=== PATIENT | female | born 1940 | race Caucasian/White ===

== ENCOUNTER 2018-10-16 18:38 | Emergency (ER) | payer MEDICARE, OTHER ==
[2018-10-16 19:22] VITALS: BP 130/75
--- NOTE | 2018-10-16 20:26 | EDM.PDOC ---
ED HPI GENERAL MEDICAL PROBLEM - General Chief Complaint: Lower Extremity Injury/Pain Stated Complaint: INJURED LEFT KNEE/BACK PAIN Time Seen by Provider: 10/16/18 20:08 Source of Information: Reports: Patient, RN Notes Reviewed History Limitations: Reports: No Limitations - History of Present Illness INITIAL COMMENTS - FREE TEXT/NARRATIVE: The patient states that she slipped on ice and fell onto her left knee, before falling all the way forward, around 17:15 to 17:30 this evening. She presents with left knee pain, but is primarily concerned because she has bilateral total knee arthroplasties, and wants to make sure that her left knee arthroplasty was not injured. She also reports mild low back pain, but she is not concerned that anything is broken. She is otherwise uninjured. The patient has not taken any home medicines to treat her symptoms. The patient is able to ambulate on both of her lower extremities without pain or limping. The patient's PCP is Stephany Stacy. Left Knee Pain Score (Numeric/FACES): 1 - Related Data Allergies Allergy/AdvReac Type Severity Reaction Status Date / Time ciprofloxacin [From Cipro] Allergy Swelling Verified 01/21/15 21:11 ciprofloxacin HCl Allergy Swelling Verified 01/21/15 21:11 [From Cipro] Sulfa (Sulfonamide Allergy Other Verified 01/21/15 21:11 Antibiotics) EES Allergy Rash Uncoded 01/21/15 21:11 Home Meds: Home Meds Aspirin [Halfprin] 81 mg PO DAILY 01/21/15 [History] Losartan [Cozaar] 100 mg PO DAILY 08/27/17 [History] Carvedilol [Coreg] 25 mg PO BID 10/16/18 [History] Hydrochlorothiazide [Microzide] 12.5 mg PO DAILY 10/16/18 [History] Past Medical History Cardiovascular History: Reports: Hypertension Musculoskeletal History: Reports: Back Pain, Chronic (DDD) - Past Surgical History HEENT Surgical History: Reports: Naso-Sinus Surgery (rhinoplasty) GI Surgical History: Reports: Other (See Below) (Exploratory laparotomy for infertility) Musculoskeletal Surgical History: Reports: Hip Replacement (right), Knee Replacement (bilateral) Social & Family History - Tobacco Use Smoking Status *Q: Never Smoker - Caffeine Use Caffeine Use: Reports: Coffee, Tea - Alcohol Use Alcohol Use History: Yes Alcohol Use Frequency: Socially ("Niurka's in my coffee veronica morning") - Recreational Drug Use Recreational Drug Use: No - Living Situation & Occupation Living situation: Reports: , with Spouse Occupation: Retired Review of Systems - Review of Systems Review Of Systems: ROS reveals no pertinent complaints other than HPI. ED EXAM, GENERAL - Physical Exam Exam: See Below Exam Limited By: No Limitations General Appearance: Alert, WD/WN, No Apparent Distress Extremities: Other (With the patient standing, there is a small abrasion, measuring approximately 1 cm diameter, located inferior to the patient's left patella, with a surrounding area of mild swelling and ecchymosis, measuring approximately 3 cm diameter. This area is tender, however, the patella itself, is not. The knee is stable. Neurovascular status of the left lower extremity is intact.) Course - Vital Signs Last Recorded V/S: Last Vital Signs Temp 36.7 C 10/16/18 19:20 Pulse 60 10/16/18 19:20 Resp 20 10/16/18 19:20 BP 130/75 10/16/18 19:20 Pulse Ox 96 10/16/18 19:20 - Re-Assessments/Exams Free Text/Narrative Re-Assessment/Exam: 10/16/18 20:21 The patient has a small abrasion and subtle ecchymosis to her anterior left knee , but the [place] patella is nontender to palpation. There is no clinical suggestion of arthroplastic instability. X-rays of the knee were offered, but declined, after I explained that while it is possible that she can break the bone that surrounds her arthroplasty, the arthroplasty itself is made of metal, and would not be injured in such a fall. Departure - Departure Time of Disposition: 20:24 Disposition: Home, Self-Care 01 Condition: Good Clinical Impression: Fall from slipping on ice, Contusion of left knee - Discharge Information *PRESCRIPTION DRUG MONITORING PROGRAM REVIEWED*: Not Applicable *COPY OF PRESCRIPTION DRUG MONITORING REPORT IN PATIENT KYMBERLY: Not Applicable Instructions: Contusion, [id number] Referrals: Stephany Stacy PA-C [Primary Care Provider] - Forms: ED Department Discharge Additional Instructions: You were seen in the emergency room after slipping on ice and falling onto her left knee. On examination, you have a small abrasion and contusion (bruise) to the front of your left knee, but the artificial knee itself appears to be intact and stable. X-rays of your left knee were offered, but declined. Take [id number] Tylenol or ibuprofen as needed for discomfort. If any other problems, please do not hesitate to return to the ER.
== END 2018-10-16 21:10 | disposition home or self-care (01) ==
LOC: JD.ED 18:38
DX: S80.02XA Contusion of left knee, initial encounter (principal); W00.0XXA Fall on same level due to ice and snow, initial encounter; I10 Essential (primary) hypertension; Z79.82 Long term (current) use of aspirin; Z79.899 Other long term (current) drug therapy; Z88.1 Allergy status to other antibiotic agents; Z88.2 Allergy status to sulfonamides
CPT/HCPCS: 99282; 99283

== ENCOUNTER 2019-04-07 16:32 | Emergency (ER) | payer MEDICARE, OTHER ==
[2019-04-07 16:49] VITALS: BP 167/73
[2019-04-07] MEDS ORDERED: Sodium Chloride 0.9% 10 ML Syringe FLUSH PRN (17:02)
--- NOTE | 2019-04-07 17:44 | EDM.PDOC ---
ED HPI GENERAL MEDICAL PROBLEM - General Chief Complaint: Chest Pain Stated Complaint: ABNORMAL EKG, SENT BY [facility] Time Seen by Provider: 04/07/19 16:42 Source of Information: Reports: Patient, RN Notes Reviewed - History of Present Illness INITIAL COMMENTS - FREE TEXT/NARRATIVE: 78-year-old lady has been referred here from [facility] for evaluation of dyspnea with exertion worsening over the past month or so, fatigue and chest heaviness. She was worried that she might be getting anemic and therefore presented to the clinic to have her blood checked. EKG was done which showed T- wave inversion in multiple leads which was a change from her prior EKG of about a year or 2 ago. She's been referred here for further evaluation. When asked about the heaviness she states that her chest feels very mildly heavy "all of the time" and feels no different today. At rest she does not feel short of breath. If she climbs stairs rapidly she will get short of breath or if she walks really fast she will also get short of breath. She states that she does try to exercise at least 3 times a week. She walked a mile this past morning without difficulty. She has had prior cardiac stress test and prior echocardiogram all about one year ago and everything checked out okay at that time. She also states that there is very strong family history of heart disease in her family. She does not smoke. Treatments WATER REGISTRAR: Reports: Other (see below) Other Treatments WATER REGISTRAR: did not h av e any aspirin at the clinic Middle Chest Pain Score (Numeric/FACES): 4 - Related Data Allergies Allergy/AdvReac Type Severity Reaction Status Date / Time ciprofloxacin [From Cipro] Allergy Swelling Verified 01/21/15 21:11 ciprofloxacin HCl Allergy Swelling Verified 01/21/15 21:11 [From Cipro] Sulfa (Sulfonamide Allergy Other Verified 01/21/15 21:11 Antibiotics) EES Allergy Rash Uncoded 01/21/15 21:11 Home Meds: Home Meds Losartan [Cozaar] 50 mg PO DAILY 08/27/17 [History] Carvedilol [Coreg] 3.125 mg PO BID 10/16/18 [History] Hydrochlorothiazide [Microzide] 12.5 mg PO DAILY 10/16/18 [History] Past Medical History Cardiovascular History: Reports: Hypertension Musculoskeletal History: Reports: Back Pain, Chronic - Past Surgical History HEENT Surgical History: Reports: Naso-Sinus Surgery GI Surgical History: Reports: Other (See Below) Musculoskeletal Surgical History: Reports: Hip Replacement, Knee Replacement Social & Family History - Tobacco Use Smoking Status *Q: Never Smoker Second Hand Smoke Exposure: No - Caffeine Use Caffeine Use: Reports: Coffee, Tea - Living Situation & Occupation Living situation: Reports: , with Spouse Occupation: Retired ED ROS GENERAL - Review of Systems Review Of Systems: See Below Constitutional: Denies: Fever, Chills, Diaphoresis HEENT: Denies: Throat Pain Respiratory: Reports: Shortness of Breath (Exertional). Denies: Cough Cardiovascular: Reports: Chest Pain (Mild tightness anterior chest without radiation) GI/Abdominal: Denies: Abdominal Pain, Nausea, Vomiting Musculoskeletal: Denies: Shoulder Pain, Arm Pain Skin: Reports: No Symptoms Neurological: Reports: No Symptoms ED EXAM, GENERAL - Physical Exam Exam: See Below General Appearance: Alert, No Apparent Distress Head: Atraumatic. No: Facial Swelling Neck: Supple Respiratory/Chest: No Respiratory Distress, Lungs Clear, Normal Breath Sounds Cardiovascular: Regular Rate, Rhythm GI/Abdominal: Soft, Non-Tender Extremities: No Pedal Edema. No: Leg Pain, Increased Warmth, Redness Neurological: Alert, Oriented, No Motor/Sensory Deficits Skin Exam: Warm, Dry, Normal Color Course - Vital Signs Last Recorded V/S: Last Vital Signs Temp 97.6 F 04/07/19 16:48 Pulse 65 04/07/19 16:48 Resp 16 04/07/19 16:48 BP 167/73 H 04/07/19 16:48 Pulse Ox 98 04/07/19 16:48 - Orders/Labs/Meds Orders: Active Orders 24 hr Category Date Time Status EKG 12 Lead [EKG Documentation Completion] [RC] STAT Care 04/07/19 17:02 Inactive EKG Documentation Completion [RC] ASDIRECTED Care 04/07/19 16:52 Active Peripheral IV Care [RC] . DIRECTED Care 04/07/19 17:03 Active Chest 1V Frontal [CR] Stat Exams 04/07/19 17:15 Taken Sodium Chloride 0.9% [Saline Flush] Med 04/07/19 17:02 Active 10 ml FLUSH ASDIRECTED PRN Peripheral IV Insertion Adult [OM.PC] Stat Oth 04/07/19 17:03 Ordered EKG 12 Lead [EK] Stat Ther 04/07/19 16:52 Ordered Medication Orders Sodium Chloride (Saline Flush) 10 ml FLUSH ASDIRECTED PRN PRN Reason: Keep Vein Open Last Admin: 04/07/19 17:24 Dose: 10 ml Labs: Laboratory Tests 04/07/19 04/07/19 Range/Units 16:45 16:45 WBC 3.98 (3.98-10.04) K/mm3 RBC 4.46 (3.98-5.22) M/mm3 Hgb 13.2 D (11.2-15.7) gm/L Hct 39.9 (34.1-44.9) % MCV 89.5 (79.4-94.8) fl MCH 29.6 (25.6-32.2) pg MCHC 33.1 (32.2-35.5) g/dl RDW Std Deviation 51.7 H (36.4-46.3) fL Plt Count 210 (182-369) K/mm3 MPV 9.3 L (9.4-12.3) fl Neut % (Auto) 50.5 (34.0-71.1) % Lymph % (Auto) 33.9 (19.3-51.7) % Nelson % (Auto) 11.8 (4.7-12.5) % Eos % (Auto) 2.8 (0.7-5.8) Baso % (Auto) 1.0 (0.1-1.2) % Neut # (Auto) 2.01 (1.56-6.13) K/mm3 Lymph # (Auto) 1.35 (1.18-3.74) K/mm3 Nelson # (Auto) 0.47 H (0.24-0.36) K/mm3 Eos # (Auto) 0.11 (0.04-0.36) K/mm3 Baso # (Auto) 0.04 (0.01-0.08) K/mm3 Sodium 139 (136-145) mEq/L Potassium 3.6 (3.5-5.1) mEq/L Chloride 102 (98-107) mEq/L Carbon Dioxide 27 (21-32) mEq/L Anion Gap 13.6 (5-15) BUN 18 (7-18) mg/dL Creatinine 0.9 (0.55-1.02) mg/dL Est Cr Clr Drug Dosing 55.57 mL/min Estimated GFR (MDRD) > 60 (>60) mL/min BUN/Creatinine Ratio 20.0 H (14-18) Glucose 102 (83-115) mg/dL Calcium 9.7 (8.5-10.1) mg/dL Total Bilirubin 0.4 (0.2-1.0) mg/dL AST 24 (15-37) U/L ALT 33 (14-59) U/L Alkaline Phosphatase 64 (46-116) U/L Troponin I < 0.017 (0.00-0.056) ng/mL Total Protein 7.5 (6.4-8.2) g/dl Albumin 3.8 (3.4-5.0) g/dl Globulin 3.7 gm/dL Albumin/Globulin Ratio 1.0 (1-2) Meds: Medications Generic Name Dose Route Start Last Admin Trade Name Freq PRN Reason Stop Dose Admin Sodium Chloride 10 ml 04/07/19 17:02 04/07/19 17:24 Saline Flush FLUSH 10 ml ASDIRECTED PRN Administration Keep Vein Open - Re-Assessments/Exams Free Text/Narrative Re-Assessment/Exam: 04/07/19 18:40 Patient has been resting comfortably while here in the ED. Troponin did come back negative. She has had the mild heaviness of her chest for about the past month so repeat troponin does not seem indicated at this time. CBC and CMP all relatively normal. Chest x-ray looks good. She's been in sinus rhythm with no ectopy while here in the ED. She has an appointment to see her Service Sprinkler Helper in about 2-1/2 weeks. Discharge instructions as documented. Departure - Departure Time of Disposition: 18:06 Disposition: Home, Self-Care 01 Condition: Fair Clinical Impression: Atypical chest pain Instructions: Nonspecific Chest Pain, [id number] Referrals: Stephany Stacy PA-C [Primary Care Provider] - Forms: ED Department Discharge Additional Instructions: Continue current medications, for now go back to taking 81 mg aspirin daily as long as that does not upset her stomach. See her industrial spraypainter in about 2-1/2 weeks as planned, return to ED as needed as discussed if symptoms worsening in any way. - My Orders Last 24 Hours: My Active Orders 04/07/19 16:52 EKG Documentation Completion [RC] ASDIRECTED EKG 12 Lead [EK] Stat 04/07/19 17:02 EKG 12 Lead [EKG Documentation Completion] [RC] STAT Sodium Chloride 0.9% [Saline Flush] 10 ml FLUSH ASDIRECTED PRN 04/07/19 17:03 Peripheral IV Care [RC] . DIRECTED Peripheral IV Insertion Adult [OM.PC] Stat 04/07/19 17:15 Chest 1V Frontal [CR] Stat - Assessment/Plan Last 24 Hours: My Active Orders 04/07/19 16:52 EKG Documentation Completion [RC] ASDIRECTED EKG 12 Lead [EK] Stat 04/07/19 17:02 EKG 12 Lead [EKG Documentation Completion] [RC] STAT Sodium Chloride 0.9% [Saline Flush] 10 ml FLUSH ASDIRECTED PRN 04/07/19 17:03 Peripheral IV Care [RC] . DIRECTED Peripheral IV Insertion Adult [OM.PC] Stat 04/07/19 17:15 Chest 1V Frontal [CR] Stat
--- NOTE | 2019-04-08 07:26 | CR ---
Chest: Portable view of the chest was obtained. Comparison: Prior chest x-ray of 03/11/17. Heart size appears slightly prominent. Tortuous thoracic aorta is seen. Lungs are clear with no acute parenchymal change. Bony structures are grossly intact. Impression: 1. Heart size appears slightly prominent. Nothing acute is seen. Diagnostic code #2
== END 2019-04-07 18:19 | disposition home or self-care (01) ==
LOC: JD.ED 16:32
DX: R07.89 Other chest pain (principal); I10 Essential (primary) hypertension; Z88.2 Allergy status to sulfonamides; Z88.1 Allergy status to other antibiotic agents; Z88.8 Allergy status to other drugs, medicaments and biological substances; Z79.899 Other long term (current) drug therapy
CPT/HCPCS: 36415; 71045; 71045-26; 80053; 84484; 85025; 93005; 93010; 99283; 99285-25

== ENCOUNTER 2020-07-07 17:17 | Emergency (ER) | payer MEDICARE, OTHER ==
[2020-07-07 18:11] VITALS: BP 141/77; PULSE 61
[2020-07-07] MEDS ORDERED: Diphtheria,Pertussis(Acell),Tetanus Vaccine 0.5 ML Syringe IM ONE (19:35)
[2020-07-07] MEDS ORDERED: Lidocaine 1% with EPINEPHrine 1:100,000 20 ML MDV INJECT ONE (19:36)
--- NOTE | 2020-07-07 19:42 | EDM.PDOC ---
ED HPI GENERAL MEDICAL PROBLEM - General Chief Complaint: Laceration Stated Complaint: R ARM LAC Time Seen by Provider: 07/07/20 19:30 Source of Information: Reports: Patient History Limitations: Reports: No Limitations - History of Present Illness INITIAL COMMENTS - FREE TEXT/NARRATIVE: 79-year-old female presents to the ED after getting tripped up and falling at home by her electrical cord on her back and plantar. Patient states she went down to the concrete floor hard injuring both of her knees and her right proximal forearm by the elbow. She denies hitting her head or chest. She has no pain in her wrists or hands. She has a deep 7 cm laceration to the proximal extensor surface of her right forearm down to the muscle. She is suffered contusions to both of her knees which both both been replaced. However she is able to walk normally after the fall. She has no hip pain. She has had a total hip repair in the past. She cannot remember when her last tetanus toxoid was updated. She prefers just to have a shot at this time versus waiting to discuss with her primary care provider next week. Of note her is at home sick with COVID-19 illness. She has been tested x2 and is proved to be negative. Plans on further testing next week. Onset: Today, Sudden Onset Date: 07/07/20 Onset Time: 17:10 Duration: Minutes: Location: Reports: Upper Extremity, Right (7 cm deep laceration proximal extensor surface right forearm.), Lower Extremity, Left (Contusion/abrasion superficial to the left knee), Lower Extremity, Right (Right knee contusion) Quality: Reports: Ache Severity: Moderate Improves with: Reports: None Worsens with: Reports: None Context: Reports: Trauma. 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 (see below) Right Arm Pain Score (Numeric/FACES): 5 - Related Data Allergies Allergy/AdvReac Type Severity Reaction Status Date / Time amlodipine Allergy Severe Swelling Verified 07/07/20 18:08 amoxicillin [From Augmentin] Allergy Severe Diarrhea Verified 07/07/20 18:08 ciprofloxacin [From Cipro] Allergy Severe Swelling Verified 07/07/20 18:08 clavulanic acid Allergy Severe Diarrhea Verified 07/07/20 18:08 [From Augmentin] erythromycin base Allergy Severe Rash Verified 07/07/20 18:08 lisinopril Allergy Severe Cough Verified 07/07/20 18:08 Sulfa (Sulfonamide Allergy Severe Mouth Sores Verified 07/07/20 18:08 Antibiotics) Home Meds: Home Meds Losartan [Cozaar] 50 mg PO DAILY 08/27/17 [History] carvediloL [Coreg] 3.125 mg PO BID 10/16/18 [History] hydroCHLOROthiazide [Microzide] 12.5 mg PO DAILY 10/16/18 [History] Aspirin [Adult Low Dose Aspirin EC] 81 mg PO DAILY 05/16/19 [History] Cetirizine HCl [Zyrtec] 10 mg PO DAILY 05/16/19 [History] Fluocinolone Acetonide 1 dose TOP BID 05/16/19 [History] Fluticasone Propionate [Flonase] 1 dose NASBOTH BID 05/16/19 [History] traMADol [Ultram] 50 mg PO TID PRN 05/16/19 [History] Ibuprofen 200 mg PO Q6H #50 capsule 05/17/19 [Rx] Doxycycline [Vibra-Tabs] 100 mg PO Q12HR #12 tab 07/07/20 [Rx] Past Medical History HEENT History: Reports: Allergic Rhinitis, Impaired Vision, Sinusitis, Other (See Below) Other HEENT History: wears glasses, has hearing aids Cardiovascular History: Reports: Heart Murmur (unable to appreciate murmur, pt states providers not always able to hear, EKG 04-07-19 SR 65), Hypertension Respiratory History: Reports: Sleep Apnea (no CPAP), Other (See Below) Other Respiratory History: acute URI Gastrointestinal History: Reports: GERD, Hemorrhoids, Other (See Below) Other Gastrointestinal History: abdominal pain Genitourinary History: Reports: Other (See Below) Other Genitourinary History: right nephrosis 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 (See Below) Other SIZING MACHINE OPERATOR History: atrophic vaginitis, endometrial polyp, pelvic pain Musculoskeletal History: Reports: Back Pain, Chronic Other Musculoskeletal History: hip pain, joint pain, back pain Neurological History: Reports: Migraines (pt states has not had a migraine since menopause) Psychiatric History: Reports: Anxiety, Depression Endocrine/Metabolic History: Reports: Vitamin D Deficiency Hematologic History: Reports: Anemia Immunologic History: Reports: None Oncologic (Cancer) History: Reports: None Other Dermatologic History: dyshidrosis, skin rash, skin laceration - Past Surgical History GI Surgical History: Reports: Other (See Below) Musculoskeletal Surgical History: Reports: Hip Replacement, Knee Replacement Social & Family History - Caffeine Use Caffeine Use: Reports: Coffee, Tea - Living Situation & Occupation Living situation: Reports: , with Spouse Occupation: Retired ED ROS GENERAL - Review of Systems Review Of Systems: See Below Constitutional: Denies: Fever, Chills, Malaise, Weakness, Fatigue, Decreased Appetite, Weight Loss HEENT: Reports: Glasses, Hearing Loss (Does wear bilateral hearing aids.) Respiratory: Reports: No Symptoms Cardiovascular: Reports: Blood Pressure Problem. Denies: Claudication (Takes medication daily for blood pressure.), Dyspnea on Exertion, Edema, Lightheadedness, Orthopnea, Palpitations Endocrine: Reports: No Symptoms GI/Abdominal: Reports: No Symptoms : Reports: Frequency Musculoskeletal: Reports: Other (Patient suffers from generalized osteoarthritis. It bothers her neck or lower back she has had both knees replaced and right hip. Intermittent pain in her shoulders.) Skin: Reports: No Symptoms Neurological: Reports: No Symptoms Psychiatric: Reports: No Symptoms Hematologic/Lymphatic: Reports: No Symptoms Immunologic: Reports: No Symptoms ED EXAM, SKIN/RASH Exam: See Below Exam Limited By: No Limitations General Appearance: Alert, WD/WN, No Apparent Distress, Other (Temperature is 36.4. Heart rate 61 and sinus. Respiratory is 20 with O2 sats of 96% on room air BP is 1 4177.) Eye Exam: Bilateral Eye: Normal Inspection, PERRL Throat/Mouth: Normal Inspection, Normal Lips, Normal Oropharynx Head: Atraumatic, Normocephalic Neck: Normal Inspection, Supple, Full Range of Motion, Tender Lateral (Mild tenderness lateral neck which she states is normal for her.). No: Lymphadenopathy (L), Lymphadenopathy (R) Respiratory/Chest: No Respiratory Distress, Lungs Clear, Normal Breath Sounds, No Accessory Muscle Use Cardiovascular: Regular Rate, Rhythm, No Edema, No Gallop, No Rub ( aortic stenosis.), Systolic Murmur (Grade 2 out of 6 pansystolic ejection murmur suggestive of). No: Normal Peripheral Pulses Peripheral Pulses: 2+: Carotid (L), Carotid (R), Posterior Tibial (L), Posterior Tibial (R), Dorsalis Pedis (L), Dorsalis Pedis (R) GI/Abdominal: Normal Bowel Sounds, Soft, Non-Tender, No Organomegaly, No Mass, Pelvis Stable Back Exam: No: CVA Tenderness (L), CVA Tenderness (R) Extremities: Other (And is suffered a deep flap laceration to the posterior extensor surface of her right forearm close to the elbow. It measures approximately 7 cm in length. She has suffered blunt trauma to both knees from fall to concrete surface. Superficial abrasions to the left anterior knee. Right shows contusion over the patella only. Of note both knees have been replaced surgically. Range of motion is good with no signs of effusion or bone injury. No injuries to the hips identified. There is no injuries to either wrist hand or elbow.) Neurological: Alert, Oriented, CN II-XII Intact, Normal Cognition Psychiatric: Normal Affect, Normal Mood Skin: Warm, Dry, Normal Color, No Rash, Other (Deep laceration right extensor surface of forearm.) ED SKIN PROCEDURES - Laceration/Wound Repair Posterior Proximal Arm Appearance: Subcutaneous, Clean Distal NVT: Neuro & Vascular Intact, No Tendon Injury Anesthetic Type: Local Local Anesthesia - Lidocaine (Xylocaine): 1% with EPI Local Anesthetic Volume: Other (15 cc) Skin Prep: Saline Saline Irrigation (cc's): 150 Exploration/Debridement/Repair: Wound Explored, Minimal Debridement, Wound Margins Revised Closed with: Sutures Lac/Wound length In cm: 7.5 Suture Size: 4-0 # of Sutures: 16 Suture Type: Nylon, Interrupted, Simple, Other (7 sutures of 4-0 Vicryl subcutaneously) Suture Size: 4-0 # of Sutures: 7 Repaired with: Vicryl Course - Vital Signs Last Recorded V/S: Last Vital Signs Temp 36.4 C 07/07/20 18:08 Pulse 61 07/07/20 18:08 Resp 20 07/07/20 18:08 BP 141/77 H 07/07/20 18:08 Pulse Ox 96 07/07/20 18:08 - Orders/Labs/Meds Orders: Active Orders 24 hr Category Date Time Status Vaccines to be Administered [RC] PER UNIT ROUTINE Care 07/07/20 19:36 Active Meds: Medications Discontinued Medications Generic Name Dose Route Start Last Admin Trade Name Armando PRN Reason Stop Dose Admin Diphtheria/Tetanus/Acell Pertussis 0.5 ml 07/07/20 19:35 07/07/20 20:27 Adacel IM 07/07/20 19:36 0.5 ml .ONCE ONE Administration Lidocaine/Epinephrine 20 ml 07/07/20 19:36 07/07/20 20:27 Xylocaine 1% With Epinephrine 1:100,000 INJECT 07/07/20 19:37 20 ml ONETIME ONE Administration - Radiology Interpretation Free Text/Narrative:: 79-year-old female presents to the ED after getting tripped on her vacuum book cleaner electrical cord at home. This caused her to fall hard to the concrete floor of the basement. She landed on both knees and right proximal forearm. She has bilateral knee replacements. Examination reveals superficial abrasions to the left knee and contusion to the right knee. There are no open wounds and she can walk fairly normally. She is also had a total right hip replacement. Major injury is to the proximal extensor surface of right forearm with a 7.5 cm laceration to the elbow. Deep laceration extends down to the muscle in the forearm and fascia. She has full ability to rotate or supinate pronate at the elbow and full extension flexion with clinically no evidence of fracture. Plan wound will be anesthetized with 1% lidocaine with epinephrine. Wound will then be explored and irrigated. It will require 2 layer closure with subcutaneous sutures with Vicryl and skin with Ethilon. Patient cannot remember when she had her last tetanus toxoid and prefers to have an injection while in the ED. Her Tdap will therefore be updated. - Re-Assessments/Exams Free Text/Narrative Re-Assessment/Exam: 07/07/20 21:00: Wound has been anesthetized with 1% lidocaine and then irrigated with 150 mils of normal saline. Mild debridement of fatty tissue and some wound margin revision carried out. Laceration repaired in 2 layers using seven 4-0 Ethilon sutures in the subcutaneous tissues. 16 sutures of Ethilon 4 -0 close the skin. Patient will cleanse the wound daily with soap and water by showering. She will then apply topical antibiotic such as bacitracin and Polysporin and cover to keep clean. Sutures will need to be removed in [address] to [address] her on doxycycline antibiotic 100 mg twice daily for 6 days to prevent secondary wound infection. Departure - Departure Time of Disposition: 20:51 Disposition: Home, Self-Care 01 Condition: Fair Clinical Impression: Fall as cause of accidental injury at home as place of occurrence Qualifiers: Encounter type: initial encounter Qualified Code(s): W19.XXXA - Unspecified fall, initial encounter Contusion of left knee Qualifiers: Encounter type: initial encounter Qualified Code(s): S80.02XA - Contusion of left knee, initial encounter Laceration of forearm, right Qualifiers: Encounter type: initial encounter Qualified Code(s): S51.811A - Laceration without foreign body of right forearm, initial encounter - Discharge Information *PRESCRIPTION DRUG MONITORING PROGRAM REVIEWED*: Not Applicable *COPY OF PRESCRIPTION DRUG MONITORING REPORT IN PATIENT [facility]: Not Applicable Prescriptions: Doxycycline [Vibra-Tabs] 100 mg PO Q12HR #12 tab Referrals: Stephany Stacy PA-C [Primary Care Provider] - Forms: ED Department Discharge Additional Instructions: Evaluation in the emergency room today in regards to injury that occurred at home tonight when you got tripped up by the vacuum book cleaner electrical cord. Suffered blunt trauma to your right proximal forearm close to the elbow with a deep flap laceration down to the muscle. Total length of laceration is 7 centimeters.( 3 inches) Wound was closed 2 layers using 7 sutures under the skin called subcutaneous sutures to bring the wound close together. Then 16 sutures were placed in the skin to close up the wound. Expect a bruise to occur in this area. Treatment at home is to daily cleanse the wound with soap and water. Showering is okay. Wound should not be soaked under water in the bathtub however until the stitches are removed. Apply topical antibiotic such as bacitracin and Polysporin to the wound once daily and cover with a bandage to keep clean and protected from irritation from clothing. Discharged home on antibiotic doxycycline 100 mg tablet twice daily for the next 6 days to prevent secondary wound infection. Tylenol or Motrin for pain is needed. Expect a bruise to form likely on both knees especially the left one due to superficial abrasions contusion from the fall. You will likely be much more stiff and sore tomorrow and the next day from the fall. Stitches need to be removed in 10 days time. Sepsis Event Note (ED) - Evaluation Sepsis Screening Result: No Definite Risk - Focused Exam Vital Signs: Vital Signs Temp Pulse Resp BP Pulse Ox 07/07/20 18:08 36.4 C 61 20 141/77 H 96 - My Orders Last 24 Hours: My Active Orders 07/07/20 19:36 Vaccines to be Administered [RC] PER UNIT ROUTINE - Assessment/Plan Last 24 Hours: My Active Orders 07/07/20 19:36 Vaccines to be Administered [RC] PER UNIT ROUTINE
== END 2020-07-07 21:29 | disposition home or self-care (01) ==
LOC: JD.ED 17:17
DX: S51.811A Laceration without foreign body of right forearm, initial encounter (principal); S80.02XA Contusion of left knee, initial encounter; S89.91XA Unspecified injury of right lower leg, initial encounter; M54.2 Cervicalgia; I10 Essential (primary) hypertension; M19.90 Unspecified osteoarthritis, unspecified site; M25.511 Pain in right shoulder; M25.512 Pain in left shoulder; Z88.8 Allergy status to other drugs, medicaments and biological substances; Z88.1 Allergy status to other antibiotic agents; Z88.2 Allergy status to sulfonamides; Z79.899 Other long term (current) drug therapy; Z96.643 Presence of artificial hip joint, bilateral; Z23 Encounter for immunization; W01.0XXA Fall on same level from slipping, tripping and stumbling without subsequent striking against object, initial encounter; Y92.009 Unspecified place in unspecified non-institutional (private) residence as the place of occurrence of the external cause
CPT/HCPCS: 12002; 12032; 90471; 90715; 99283; 99283-25